=== PATIENT | male | born 1960 | race Caucasian/White ===

== ENCOUNTER → 2017-05-08 | Outpatient (CLI) | payer BC | END | disposition home or self-care (01) | LOC: C.RDSM 14:50 | PROVIDERS: ATTEND Physical Medicine & Rehabilitation Sports Medicine | DX: M25.562 Pain in left knee (principal) ==

== ENCOUNTER → 2017-05-16 | Outpatient (CLI) | payer BC ==
--- NOTE | 2017-05-16 08:53 | DIAGNOSTIC IMAGING REPORT ---
MRI OF THE LEFT KNEE CLINICAL HISTORY: Left knee pain. COMPARISON STUDY: Radiographs of left knee dated 05/08/2017. MRI of the left knee dated 10/12/2016. TECHNIQUE: MRI of the left knee was performed utilizing proton density, T1, and T2-weighted sequences in the axial, sagittal, coronal planes. IV contrast was not administered for this examination. Examination is modestly degraded by motion artifact. FINDINGS: Menisci: There is a large complex tear with maceration involving the body and posterior horn of the medial meniscus. No flipped fragment is identified. There is increased signal identified within the body and posterior horn of the slightly discoid lateral meniscus. This could present intrasubstance tearing versus mucoid degeneration. Ligaments: The anterior and posterior cruciate ligaments are intact. Findings are consistent with a grade 2 injury of the medial collateral ligament. The lateral collateral ligament complex is preserved. Extensor mechanism: The extensor mechanism is intact. Hoffa's fat pad is normal in appearance. Articular cartilage and bone: There is mild degenerative thinning of the articular cartilage along the weightbearing surface in the medial compartment. There is marked marrow edema within the medial femoral condyle with a developing osteochondral defect. This measures up to 15 mm. There is no fluid undercutting the cartilage to suggest instability. The articular cartilage is intact within the lateral and patellofemoral compartments. Mild marrow edema is also seen within the peripheral aspect of the medial tibial plateau. Joint effusion: There is trace joint effusion. Soft tissues: There is generalized atrophy of the regional musculature. No abnormal signal is identified. Mild subcutaneous and deep soft tissue edema is present around the knee, greatest in the prepatellar region. IMPRESSION: 1. There is complex tearing with maceration involving the body and posterior horn of the medial meniscus. 2. There is a developing osteochondral defect with marked marrow edema identified in the medial femoral condyle. There is no MRI evidence of instability. 3. There is mild marrow edema within the peripheral aspect of the medial tibial plateau. 4. Mildly discoid lateral meniscus. Increased signal within the body and posterior horn of the lateral meniscus could represent mucoid degeneration versus intrasubstance tearing. 5. Findings are consistent with a grade 2 injury of the medial collateral ligament. Electronically signed by: Jae Mace M.D. 05/16/2017 8:51 AM Dictated Date/Time: 05/16/2017 8:41 AM
== END | disposition home or self-care (01) ==
LOC: C.MRI 07:38
PROVIDERS: ATTEND Physical Medicine & Rehabilitation Sports Medicine
DX: S83.232A Complex tear of medial meniscus, current injury, left knee, initial encounter (principal); M95.8 Other specified acquired deformities of musculoskeletal system; X58.XXXA Exposure to other specified factors, initial encounter

== ENCOUNTER → 2017-06-29 | Day surgery (SDC) | payer BC ==
[2017-06-07 07:34] VITALS: BMI 41.0
[2017-06-21 15:31] VITALS: Ht 167.6 cm; Wt 117.6 kg
--- NOTE | 2017-06-21 15:48 | PAT Medication Instructions ---
Service Date Jun 21, 2017. Current Home Medication List Aspirin (Aspirin Chewable), 81 MG PO QAM Lisinopril (Zestril), 20 MG PO QAM Metformin Hcl (Glucophage), Unknown Dose PO BID Medication Instructions For Your Scheduled Surgery - Check with surgeon for instructions: Aspirin (Aspirin Chewable), 81 MG PO QAM - Hold the following medications 48 hours prior to surgery: Metformin Hcl (Glucophage), Unknown Dose PO BID - Hold the following medications the morning of surgery: Lisinopril (Zestril), 20 MG PO QAM If you have any questions please call us at [phone] or [phone] or [phone]
[2017-06-21 16:11] LABS: HEMATOCRIT 41.4 % (42-52); HEMOGLOBIN 14.5 g/dL (14.0-18.0); MEAN CELL VOLUME 84.5 fL (80-100); MEAN CORPUSCULAR HEMOGLOBIN 29.6 pg (25-34); MEAN PLATELET VOLUME 8.7 fL (7.4-10.4); PLATELET COUNT 247 K/uL (130-400); RED CELL DISTRIBUTION WIDTH CV 12.6 % (11.5-14.5); RED CELL DISTRIBUTION WIDTH SD 38.3 fL (36.4-46.3); WHITE BLOOD COUNT 6.84 K/uL (4.8-10.8)
[~2017-06-29] VITALS: Ht 167.6 cm; Wt 117.6 kg
[~2017-06-29] MED LIST: ASPCH81X PO; ATROPINE SULFATE 0.1 MG/ML 5ML SYR IV PRN; CEFAZOLIN 2000MG IV PUSH 15 ML IV SCH; EpHEDrine SULFATE INJ 50 MG/ML AMP IV PRN; FENTANYL CITRATE INJ 50 MCG/1 ML 2 ML VIAL IV PRN; FENTANYL CITRATE INJ 50 MCG/1 ML 2 ML VIAL ONE; GLC/500 PO; HYDROCODONE/ACETAMIN 5/325MG TAB PO PRN; HYDROmorphone INJ 1 MG/ML SYR IV PRN; LACTATED RINGER'S 1000ML 1,000 ML IV SCH; LIDOCAINE HCL 2% 2 ML VIAL (20MG/ML) ONE; LIDOCAINE/EPINEPHRINE 1% INJ 50 ML VIAL ONE; LISI-725 PO; MIDAZOLAM HCL 1 MG/ML 2ML VIAL ONE; ONDANSETRON INJ 2 MG/ML 2 ML VIAL IV PRN; ONDANSETRON INJ 2 MG/ML 2 ML VIAL ONE; PROMETHAZINE HCL INJ 12.5 MG in SODIUM CHLORIDE 0.9% 50ML 50 ML IV PRN; PROMETHAZINE HCL INJ 25 MG/ML 1 ML VIAL ONE; PROPOFOL IV EMULSION 10 MG/ML 20 ML VIAL IV ONE; SODIUM CHLORIDE 0.9% 1000ML 1,000 ML IV SCH; SUCCINYLCHOLINE CHLORIDE 20 MG/ML 10 ML VIAL IV ONE
--- NOTE | 2017-06-29 08:19 | History & Physical Bridge Note ---
H&P Re-Evaluation Bridge Note: I have examined the patient, reviewed the History & Physical and in the interval since the performance of the History & Physical I have noted the following changes of clinical significance: type II DM on meds No changes noted
--- NOTE | 2017-06-29 10:09 | [facility] Post Operative Brief Note ---
Immediate Operative Summary Operative Date Jun 29, 2017. Pre-Operative Diagnosis Left knee medial meniscus root tear with osteonecrosis versus evolving osteochondral defect medial femoral condyle Post-Operative Diagnosis Same as preop, chondrosis medial femoral condyle Procedure(s) Performed Left Knee Arthroscopic Partial Medial Meniscectomy, Chondroplasty, Antegrade Drilling Surgeon Dr. Swift Co Pilot Surgeon(s) Reji Dasilva PA-C and Sunita Lloyd, Medical student Estimated Blood Loss 10 mL Findings Consistent with Post-Op Diagnosis Specimens None Drains None Anesthesia Type General Complication(s) none Disposition Accompanied Pt To Recovery: no Disposition: Recovery Room / PACU
--- NOTE | 2017-06-29 10:29 | [facility] Operative Report ---
Operative Report Operative Date Jun 29, 2017. Pre-Operative Diagnosis Left knee medial meniscus root tear with osteonecrosis versus evolving osteochondral defect medial femoral condyle Post-Operative Diagnosis Same as preop, chondrosis medial femoral condyle Procedure(s) Performed Left Knee Arthroscopic Partial Medial Meniscectomy, Chondroplasty, Antegrade Drilling Surgeon Dr. Swift Simulation Specialist Surgeon(s) Reji Dasilva PA-C and Sunita Lloyd, Medical student Estimated Blood Loss 10 mL Findings Healed partial medial meniscal posterior horn root tear. Chondromalacia medial femoral condyle. Specimens None Anesthesia Gen. Complication(s) None Disposition Recovery Room / PACU Indications Patient's a 56-year-old male. He has a new onset type 2 diabetes. He is overweight. He has varus alignment probable damage to the medial meniscal root. Medial compartment overload with some chondrosis. He he has probably osteonecrosis and may be evolving an osteochondral defect. He has failed extensive nonsurgical management. Description of Procedure Informed consent was obtained. The patient was identified as Dioni Ovalle. He identified the operative site as the left knee. I marked with my initials. Preoperative surgical timeout was performed. Appropriate dose of IV antibiotics was given. He was taken to the operating room positioned supine on the OR table. A bump was placed under the left hip. No tourniquet. A lateral post was used for stressing the knee. The knee was injected with 1% lidocaine containing epinephrine for the fat pad portal sites and knee joint. The exam under anesthesia revealed range of motion 2/0/130. He had varus alignment trace MCL laxity otherwise intact ligamentous exam area there is no effusion in the knee. Preoperative consultation was medical doctor was obtained. DVT prophylaxis with aspirin postoperatively and early ambulation. Additionally he will have foot pumps intraoperatively. Inferolateral viewing portal superior lateral outflow portal and inferomedial working portals were established. I leg was previously prepped and draped in usual sterile fashion. The suprapatellar pouch medial and lateral gutters and popliteal hiatus articular surfaces of the patella and trochlea were normal. Cruciates were normal as was the postero-lateral compartment. There was grade 1 chondrosis of the lateral tibial plateau and lateral femoral condyle. The lateral meniscus was intact and stable to probing. The retropatellar fat pad was resected and the arthroscopic Bovie was utilized to help control bleeding. The medial meniscus was visualized and probed. It looks like there was a old healed partial medial meniscal root injury. There appeared to be intact fibers going towards the meniscal root without any evidence of instability. The postero-medial compartment was normal. The tibial plateau normal. There is no surgically correctable meniscus tear. I do not think that the root tear was to the extent that it would require repair. Additionally given other patient factors I did not think that repair would be indicated. There was grade 2 chondrosis of the medial femoral condyle about 2 cm in diameter. This corresponded to the weightbearing area directly in line with the distal femur shaft. An accessory medial portal was made and a antegrade drilling guide was inserted. This was placed at the center of the chondrosis. Prior to this could not palpate any softening or ballottement of the bone indicate any type of instability of the lesion. An accessory medial incision was made and the Arthrex guide was placed directly down to the bone after bluntly dissecting. I confirmed this fluoroscopy. A 2.4 mm drill was then placed down to the subchondral bone and confirmed to be within the lesion on AP and lateral fluoroscopic images. 3 more of drill holes were made in a similar fashion going medial anterior and posterior. One of these penetrated through the subchondral bone into the cartilage but the others did not. The medial incision which was made only through the skin and then bluntly dissected down to the bone. A soft tissue protector was utilized at all times. This was closed with 2-0 Vicryl and 4-0 nylon. The portals were closed with 4 -0 nylon. A soft sterile dressing was applied and the patient is awake from anesthesia without difficulty. Her were no specimens or call locations. Counts are correct in the case. Blood loss was 10 mL. At the conclusion operations both patient's family informed of my findings gave detailed postoperative instructions. He'll begin aspirin 325 mg by mouth twice a day tonight for DVT prophylaxis. He will be toe-touch weightbearing with crutches or walker for 6 weeks. I attest to the content of the Intraoperative Record and any orders documented therein. Any exceptions are noted below.
--- NOTE | 2017-06-29 10:37 | Discharge Instructions-SurgCtr ---
Discharge Instructions Date of Service Jun 29, 2017. Visit Reason for Visit: Left Knee Medial Meniscus Tear, Osteochondral Lesi Discharge Discharge Diagnosis / Problem: Left knee s/p arthroscopy, antegrade drilling of medial femoral condyle Discharge Goals Goal(s): Decrease discomfort, Improve function, Increase independence Medications Stopped Medications Name(s): Metformin stopped 06-25-17 and Aspirin stopped 06-26-17 Activity Recommendations Activity Limitations: as noted below Lifting Limitations: gradually increase as tolerated Exercise/Sports Limitations: until after follow-up appointment Shower/Bathe: may shower/bathe in 3 days Driving or Machine Use: resume 3 days after discharge Weightbearing Status: Left toe touch Anesthesia . Post Anesthesia Instructions: If you have had General Anesthesia or IV Sedation: * Do not drive today. * Resume driving when surgeon permits. * Do not make important decisions or sign legal documents today. * Call surgeon for: 1. Temperature elevations greater than 101 degrees F. 2. Uncontrollable pain. 3. Excessive bleeding. 4. Persistent nausea and vomiting. 5. Medication intolerance (nausea, vomiting or rash). * For nausea and vomiting use only clear liquids such as: tea, soda, bouillon until nausea subsides, then gradually increase diet as tolerated. * If you have any concerns or questions, call your surgeon's office. If physician is unavailable and it is an emergency, call 911 or go to the nearest emergency room. . Instructions / Follow-Up Instructions / Follow-Up The following are instructions to follow after your Arthroscopic Knee Surgery. ACTIVITY RECOMMENDATIONS: * Minimize activity until your first visit after surgery. * Return to activity is individualized. Most patients are able to return to every day activities within one month. * Return to intensive labor usually occurs at 2-3 months. * Driving is not permitted until at least your first postoperative visit at a minimum. Please ask your doctor when it is safe to resume driving. If you have an automatic vehicle and your left leg has been operated on, then you may begin driving as soon as you are comfortable and can drive safely. SCHOOL/WORK RECOMMENDATIONS: * You may return to sedentary work when you are feeling more comfortable. This is usually 3-7 days after surgery. * Expect increased discomfort with increased activity. Continue to elevate and ice the leg as much as possible. MEDICATIONS: * You will have a prescription for pain medication and an anti-inflammatory medication after surgery. * Use the pain medication for severe pain and the anti-inflammatory for less severe pain. Once the pain medication has run out, try to use the anti-inflammatory medication. If this is not effective, contact the office for assistance. * The pain medication may cause nausea, constipation and drowsiness. You should see how they affect you before driving or similar activity. * The anti-inflammatory medication may cause stomach upset and bleeding. If this occurs let your doctor know immediately . * Take a stool softener like Colace or a laxative like Senokot to prevent constipation. DIET: * Resume previous diet. SPECIAL CARE: ICE: * You will need to use ice bags or gel packs. Do not apply ice directly to the skin. Use a thin dressing or susan shirt between the skin and ice bag. Apply ice for 20-30 minutes and repeat every 2-4 hours. This is especially important for the first 7-10 days after surgery. Once the pain improves, use ice as needed. ELEVATION: * Keep your leg elevated at or above the level of your heart as much as possible. * Expect some increased discomfort and swelling if you are standing for any length of time. * When lying down, avoid placing anything under your knee. Rather, prop your leg up by placing several pillows under your heel or calf. DRESSING: * Your dressing will be changed at your first therapy appointment approximately 4-5 days after surgery. Band-aids, tape strips or gauze may be applied. You may then change your dressing daily. * Reapply dressing followed by the Dawit wrap or Tubi-crude unit operator stockinet. * Always wash your hands prior to touching the incision area. * Once the stitches are removed, you may leave the wound open to air or cover with an Dawit wrap or Tubi-crude unit operator stockinet. * If you have been given a white elastic stocking (WEST hose), wear as much as possible for the first 1-3 weeks depending on swelling. * Expect some bloody drainage for the first few days after surgery. * Leave the tape strips, if present, in place for 5-7 days. * Band-aids and gauze may be changed daily. CRUTCHES: * You will need to use crutches or a walker after surgery. * You can only apply toe touch weight to the left leg. Do not bear full weight. * Your therapist can provide assistance weaning off crutches. * Patients who have a microfracture done may need to be toe-touch weight- bearing for 4-6 weeks. BATHING: * You may shower or sponge-bathe immediately after surgery. * The dressing will need to be covered with a plastic bag or plastic wrap until the dressing is changed on the fourth or fifth day after surgery. * Once the dressing has been changed on the fourth or fifth day after surgery, you may shower and get the incision wet. * Wash with regular soap and water. * Do not bathe (submerge the incision), soak, swim or use a hot tub until the incision is completely healed over with normal skin and the doctor has given the OK to proceed. * There is no need to apply any ointments, powders or salves to your incision. * Do not apply alcohol or hydrogen peroxide directly to the incision. * Diluted peroxide (50:50 mixture with sterile saline) may be used to clean dried blood from around the incision area. BRACE: * Bracing is generally not needed after routine Arthroscopic Knee surgery. THERAPY: * You will begin therapy four or five days after surgery. * Organized therapy with the therapist is important for the first 4-6 weeks after surgery. During that time you will attend therapy 1-3 times per week. * You will also need to do daily exercises for range of motion and strength as instructed. PROBLEMS/QUESTIONS: * If you have any problems such as severe pain, numbness, tingling or high fevers or if you have any questions, please contact the office at [phone]. * It is not uncommon to have some numbness and tingling after the surgery especially if you have had a nerve block done. This should gradually improve over the first 1- 2 days. If this persists longer or worsens please contact the office. FOLLOW UP VISIT: * If not already scheduled, please call the office at to schedule a follow-up appointment for 10 days, 6 weeks and 3 months after surgery. Diet Recommendations Home Diet: resume previous diet Procedures Procedures Performed: Left Knee Arthroscopic Partial Medial Meniscectomy, Chondroplasty, Antegrade Drilling Pending Studies Studies pending at discharge: no Medical Emergencies . Who to Call and When: Medical Emergencies: If at any time you feel your situation is an emergency, please call 911 immediately. . Non-Emergent Contact Non-Emergency issues call your: Primary Care Provider, Surgeon Call Non-Emergent contact if: temperature is above 101, wound has increased drainage, wound has increased redness, wound has increased pain, you have any medication questions . . "Provider Documentation" section prepared by Reji Dasilva PA-C. . [place] Drug Monitoring Program Search Results: no issues identified
--- NOTE | 2017-06-29 10:38 | Medical Student: [facility] ---
Immediate Operative Summary Operative Date Jun 29, 2017. Pre-Operative Diagnosis Medial meniscal root tear, medial compartment chondrosis Post-Operative Diagnosis Same as above Procedure(s) Performed Left arthroscopy of the knee, partial medial meniscectomy, chondroplasty, and anterograde drilling of osteochondral lesion Surgeon Dr. Swift Carbider Surgeon(s) Reji Dasilva PA-C, and Sunita Lloyd, MS3 Estimated Blood Loss 10cc Findings Consistent with post-operative diagnosis Specimens No specimens were collected Drains None Anesthesia General Complication(s) None Disposition Recovery Room / PACU
--- NOTE | 2017-06-29 12:29 | [facility] Operative Report ---
Operative Report Operative Date Jun 29, 2017. Pre-Operative Diagnosis Left knee medial meniscus root tear with osteonecrosis versus evolving osteochondral defect medial femoral condyle Post-Operative Diagnosis Left knee same as preop, chondrosis medial femoral condyle Procedure(s) Performed Left Knee Arthroscopic Partial Medial Meniscectomy, Chondroplasty, Antegrade Drilling Surgeon Dr. Swift Sandwich Counter Attendant Surgeon(s) Reji Dasilva PA-C and Sunita Lloyd, Medical student Estimated Blood Loss 10 mL Findings left knee medial meniscal tear, chondral injury medial femoral condyle Specimens None Drains None Anesthesia Type General Complication(s) none Disposition no Recovery Room / PACU Indications This 56-year-old white male presented to the office with complaints of left knee pain. He had tried conservative care measures without success. Patient elected to proceed with surgical intervention after being educated about potential risks and outcomes. Preoperative imaging was obtained. Description of Procedure Patient was taken to the operating room where he was given local anesthesia and general anesthesia. he was prepped and draped in usual sterile fashion. Please see Dr. Swift's operative report for specifics of the procedure. I was present for the entire case from initial patient positioning through final wound closure. Assistance was provided in patient positioning, arthroscopy, and final wound closure. Patient was taken to the recovery room in satisfactory condition. I attest to the content of the Intraoperative Record and any orders documented therein. Any exceptions are noted below.
--- NOTE | 2017-06-29 12:34 | Anesthesia Progress Nt - [facility] ---
Anesthesia Post Op Note Date & Time Jun 29, 2017 at 12:33 Vital Signs Pain Intensity: 4 Vital Signs Past 12 Hours Date Time Temp Pulse Resp B/P (MAP) Pulse Ox O2 Delivery O2 Flow Rate FiO2 06/29/17 11:57 36.4 60 20 140/87 96 Room Air 06/29/17 11:53 75 21 96 06/29/17 11:53 71 21 06/29/17 11:51 158/93 06/29/17 11:48 63 17 06/29/17 11:48 61 17 99 06/29/17 11:45 115/78 06/29/17 11:43 59 16 100 06/29/17 11:43 60 16 06/29/17 11:41 114/83 06/29/17 11:38 64 16 99 06/29/17 11:38 61 16 06/29/17 11:36 140/88 06/29/17 11:33 59 15 06/29/17 11:33 58 15 98 06/29/17 11:31 103/77 06/29/17 11:28 57 16 97 06/29/17 11:28 58 16 06/29/17 11:25 135/85 06/29/17 11:23 62 13 06/29/17 11:23 66 13 98 06/29/17 11:20 146/91 06/29/17 11:18 69 18 06/29/17 11:18 73 18 98 06/29/17 11:16 129/78 06/29/17 11:13 58 17 98 06/29/17 11:13 58 17 06/29/17 11:11 136/73 06/29/17 11:08 72 17 06/29/17 11:08 74 17 96 06/29/17 11:06 107/69 06/29/17 11:03 69 17 06/29/17 11:03 70 17 95 06/29/17 11:01 130/83 06/29/17 10:58 61 21 95 06/29/17 10:58 60 21 06/29/17 10:55 116/78 06/29/17 10:53 73 19 94 06/29/17 10:53 70 19 06/29/17 10:50 112/78 06/29/17 10:48 71 21 06/29/17 10:48 68 21 96 06/29/17 10:47 63 29 96 06/29/17 10:47 65 29 06/29/17 10:45 111/78 06/29/17 10:42 63 24 96 06/29/17 10:42 66 24 06/29/17 10:41 134/74 06/29/17 10:37 76 24 06/29/17 10:37 75 24 96 06/29/17 10:36 144/116 06/29/17 10:32 36.1 75 14 138/92 96 Mask 8 06/29/17 10:32 82 138/92 97 06/29/17 10:32 82 06/29/17 07:45 36.6 78 18 134/91 (105) 95 Room Air Notes Mental Status: alert / awake / arousable, participated in evaluation Pt Amnestic to Procedure: Yes Nausea / Vomiting: adequately controlled Pain: adequately controlled Airway Patency, RR, SpO2: stable & adequate BP & HR: stable & adequate Hydration State: stable & adequate Anesthetic Complications: no major complications apparent
[2017-06-29 13:00] VITALS: BP 145/89; PULSE 61; O2SAT 95
--- NOTE | 2017-07-10 08:33 | EDITING REQUIRED CODING QUERY ---
MENISCUS TEAR To promote full compliance with coding requirements relating to patient care physician participation is requested in all cases of application support intern uncertainty. Please assist us with the question(s) below: Please specify the type of Meniscus Tear by placing an "X" within the parenthesis (). If other please document type. ( ) Current Injury ( ) Old Injury ( ) Other: (Please Specify) Thank you Claudia Oneill
== END | disposition home or self-care (01) ==
LOC: X.SURG 07:23
PROVIDERS: ATTEND Physical Medicine & Rehabilitation Sports Medicine
DX: M23.222 Derangement of posterior horn of medial meniscus due to old tear or injury, left knee (principal); M94.262 Chondromalacia, left knee; E11.9 Type 2 diabetes mellitus without complications; I10 Essential (primary) hypertension; E66.3 Overweight; Z68.41 Body mass index [BMI] 40.0-44.9, adult; Z88.0 Allergy status to penicillin; Z90.89 Acquired absence of other organs; Z87.891 Personal history of nicotine dependence; Z79.82 Long term (current) use of aspirin; Z79.899 Other long term (current) drug therapy

== ENCOUNTER → 2017-08-25 | Outpatient (CLI) | payer BC ==
[~2017-08-25] MED LIST changes: -ATROPINE SULFATE 0.1 MG/ML 5ML SYR IV PRN; -CEFAZOLIN 2000MG IV PUSH 15 ML IV SCH; -EpHEDrine SULFATE INJ 50 MG/ML AMP IV PRN; -FENTANYL CITRATE INJ 50 MCG/1 ML 2 ML VIAL IV PRN; -FENTANYL CITRATE INJ 50 MCG/1 ML 2 ML VIAL ONE; -HYDROCODONE/ACETAMIN 5/325MG TAB PO PRN; -HYDROmorphone INJ 1 MG/ML SYR IV PRN; -LACTATED RINGER'S 1000ML 1,000 ML IV SCH; -LIDOCAINE HCL 2% 2 ML VIAL (20MG/ML) ONE; -LIDOCAINE/EPINEPHRINE 1% INJ 50 ML VIAL ONE; -MIDAZOLAM HCL 1 MG/ML 2ML VIAL ONE; -ONDANSETRON INJ 2 MG/ML 2 ML VIAL IV PRN; -ONDANSETRON INJ 2 MG/ML 2 ML VIAL ONE; -PROMETHAZINE HCL INJ 12.5 MG in SODIUM CHLORIDE 0.9% 50ML 50 ML IV PRN; -PROMETHAZINE HCL INJ 25 MG/ML 1 ML VIAL ONE; -PROPOFOL IV EMULSION 10 MG/ML 20 ML VIAL IV ONE; -SODIUM CHLORIDE 0.9% 1000ML 1,000 ML IV SCH; -SUCCINYLCHOLINE CHLORIDE 20 MG/ML 10 ML VIAL IV ONE
== END | disposition home or self-care (01) ==
LOC: C.RDSM 17:54
PROVIDERS: ATTEND Physical Medicine & Rehabilitation Sports Medicine
DX: S83.232D Complex tear of medial meniscus, current injury, left knee, subsequent encounter (principal); X58.XXXD Exposure to other specified factors, subsequent encounter